=== PATIENT | female | born 1945 | race Caucasian/White ===

== ENCOUNTER 2019-07-04 07:26 | Inpatient (IN) | payer OTHER, BC ==
--- NOTE | 2019-07-04 07:57 | PDOC ---
History of Present Illness - General Chief Complaint: Injury Stated Complaint: FALL Time Seen by Provider: 07/04/19 07:40 History Source: Patient Exam Limitations: No Limitations - History of Present Illness Initial Comments: 07/04/19 07:58 Christi Montiel is a 74yF w PMHx HTN and cataracts presenting w R hip and ankle pain s/p fall. 630a today she fell down 2 stairs while carrying paper while looking up w subsequent R ankle swelling and pain in R ankle/hip. No LOC, head trauma, not on blood thinners. Could not ambulate after fall. Denies nausea/ vomiting, SOB, chest pain. Past History - Past Medical History Allergies/Adverse Reactions: Allergies Allergy/AdvReac Type Severity Reaction Status Date / Time No Known Allergies Allergy Verified 07/04/19 09:05 Review of Systems - Review of Systems Constitutional: No: Chills, Fever HEENTM: No: Eye Pain, Recent change in vision, Nose Pain, Throat Pain, Mouth Pain Respiratory: No: Cough, Shortness of Breath Cardiac (ROS): No: Chest Pain, Palpitations, Syncope ABD/GI: No: Abdominal Distended, Constipated, Diarrhea, Nausea, Vomiting : No: Burning, Dysuria, Discharge, Hematuria Musculoskeletal: Yes: Back Pain, Joint Pain (R ankle) Integumentary: Yes: Bruising (R ankle). No: Flushing Neurological: No: Headache, Seizure, Tingling Psychiatric: No: Anxiety, Depression, Stressors Endocrine: No: Excessive Sweating, Flushing, Intolerance to Cold, Intolerance to Heat Hematologic/Lymphatic: No: Anemia, Blood Clots *Physical Exam - Physical Exam General Appearance: Yes: Nourished, Appropriately Dressed, Mild Distress HEENT: positive: EOMI, MARILEE, Normal Voice, Hearing Grossly Normal. negative: Scleral Icterus (R), Scleral Icterus (L), Rhinorrhea, Sinus Tenderness Neck: positive: Supple. negative: Tender, Rigid Respiratory/Chest: positive: Lungs Clear, Normal Breath Sounds. negative: Chest Tender, Respiratory Distress, Crackles, Rales, Rhonchi, Stridor, Wheezing Cardiovascular: positive: Regular Rhythm, Regular Rate, S1, S2, Systolic Murmur. negative: Edema Vascular Pulses: Dorsalis-Pedis (R): 3+, Doralis-Pedis (L): 3+ Musculoskeletal: positive: Normal Inspection, Other (no stepoffs, R lumbar paraspinal and ischial spine mild tenderness) Extremity: positive: Other (+2 edema and bruising over medial malleolus R ankle. R leg lateral rotated. Normal sensation. ROM limited d/t pain.) Neurologic: positive: scroll assembler II-XII NML intact, Fully Oriented, Alert, Normal Mood/ Affect, Normal Response. negative: Motor Strength 5/5 (4/5 ) ED Treatment Course - LABORATORY CBC & Chemistry Diagram: 07/04/19 08:00 07/04/19 08:04 Medical Decision Making - Medical Decision Making 07/04/19 08:02 CBC CMP coags T&S EKG done R hip XR R ankle XR tylenol --- Christi Montiel is a 74yF w PMHx HTN and cataracts presenting w R hip and ankle pain s/p mechanical fall. R ankle XR shows trimalleolar fracture-dislocation of R ankle. R hip XR did not show fracture/dislocation. R leg is neurovascular intact. Pt is neuro intact, no head trauma. Has new systolic murmur on exam. Given tylenol Consulted [facility] for Dr Becerril, told to reduce, splint ankle and dc w ortho f /u. Pt consented to propofol sedation, ankle was reduced and placed in a splint/ cast. Pt could not ambulate w crutches. Ortho will not perform surgery for at least 5d to wait for ankle swelling to settle down. Admitted m/s Dr Farris for R ankle trimalleolar fracture-dislocation, systolic murmur Discharge - Discharge Information Problems reviewed: Yes Clinical Impression/Diagnosis: Systolic murmur Trimalleolar fracture of ankle, closed Qualifiers: Encounter type: initial encounter Laterality: right Qualified Code(s): S82.851A - Displaced trimalleolar fracture of right lower leg, initial encounter for closed fracture Condition: Stable - Follow up/Referral Referrals: Adithya Warren [Primary Care Provider] - Curtis Becerril MD [Staff Physician] - - Patient Discharge Instructions Patient Printed Discharge Instructions: How to Take Care of Your Cast, DI for Ankle Fracture, DI for Heart Murmur-Adult Additional Instructions: You were seen for hip and ankle pain after falling. Your x-rays show that you have a right ankle fracture. You also have a heart murmur. You were given medication for your pain and your ankle was reduced and placed in a cast. You decided to leave AMA Please follow up with the referred orthopedics Dr Becerril regarding your ankle. Follow up with your primary care doctor regarding your heart murmur. Do not bear weight on your right foot. Avoid getting your cast wet. You can take tylenol or ibuprofen if you continue to have pain. Come back to the ED if you have increasing foot pain, numbness, or fevers. - Post Discharge Activity
[2019-07-04] MEDS ORDERED: ACETAMINOPHEN 500 MG TABLET (FP) PO ONE (07:58)
[2019-07-04] MEDS ORDERED: morphine CARPU-JECT 4 MG/1 ML DISP.SYRIN IVPUSH ONE (08:05)
[2019-07-04] MEDS ORDERED: ACETAMINOPHEN 1000 MG/100 ML VIAL (NON FORMULARY) IVPB ONE (08:09)
--- NOTE | 2019-07-04 08:30 | PDOC ---
Attending Attestation - Resident Resident Name: Edi Costello - ED Attending Attestation I have performed the following: I have examined & evaluated the patient, The case was reviewed & discussed with the resident, I agree w/resident's findings & plan, Exceptions are as noted - HPI HPI: We will go with history of hypertension cataracts presents with mechanical fall. Patient was walking with a box down stairs fell down 2 stairs landing predominantly on her right ankle up to her right hip complaining of moderate pain persistent constant with swelling to her right ankle mild right hip denies any trauma loss of consciousness patient does not take any blood thinners Symptoms are moderate to severe persistent constant worse alleviated by rest ROS: A complete review of 10 out of 10 review of systems is taken and is negative apart from what is previously mentioned below and in the HPI. - Physicial Exam PE: Vitals: Triage Vital signs reviewed General Appearance: Moderate distress, well nourished well developed, Head: Atraumatic, Eyes: Pupils equal reactive round, extraocular movement intact Cardiac: Regular rate and rhythym, no murmurs, no rubs, no gallops, Lungs: Clear to auscultation bilateral, good air movement bilaterally, Abdomen: Soft, non distended, normal bowel sounds, non tender to palpation Extremities: Full range of motion to all extremities, ecchymosis swelling to the right ankle maximally tender to palpation over the medial malleolus no proximal fibular tubular tenderness to palpation Neurovascular intact distally Skin: Warm and dry, swollen lower extremity Neuro: AOX3; cranial Nerves 2-12 grossly intact, strength intact to all extremities, sensation intact to all extremities, Psych: Normal mood, normal affect - Medical Decision Making 07/04/19 15:19 X-ray demonstrates tri-malleolar fracture Case discussed with Dr. Bingham orthopedics. No indication for acute surgery if patient can be reduced Patient consented for moderate sedation last meal 4:30 AM will wait till late morning early afternoon for sedation Patient consented for sedation reduction timeout performed single agent propofol used see sedation procedure note See reduction procedure note Adequate reduction obtained, films reviewed by orthopedist adequate for outpatient follow-up Our memory care program resident has spoken at length with the patient myself and our memory care program resident recommended that the patient stay for admission I am concerned about her ability to ambulate at home given that she has home she will require crutches Patient is adamant she will not stay in the hospital she has cats at home hospital I have offered help from our care management team in caring for her pets Despite my best efforts patient will not stay for admission. She is free of intoxication has insight to her disease process she can return to the emergency department at any time She will sign out AMA. She will follow-up with orthopedics in 1 week She will return to the ED for any worsening symptoms Reevaluation: Patient Un-ambulate with crutches as she is completely unsteady when standing. She lives by herself she has multiple stairs and she cannot be safely discharged home she will require admission, ortho consultation and definitive placement vrs management Moderate Sedation - Pre-Procedure Assessment Joint Reduction Is this a Moderate (Conscious) sedation patient?: Yes Med/Surg Hx & PE performed: Yes Vital Signs: Vital Signs Temp Pulse Resp BP Pulse Ox 98.7 F 71 18 161/87 98 07/06/19 09:00 07/06/19 17:00 07/06/19 17:00 07/06/19 17:00 07/06/19 09:00 Does the patient have a history of Obstructive Sleep Apnea: No Prior complications with sedation/analgesia: No Mallampati Score: II ASA Physical Status: Class II Consent obtained: Written Items checked for time out procedure: All work stopped, Patient identified using 2 identifiers, Procedure to be performed verified & agreed, Allergies noted, Consent read, Site marked & verified (if indicated), ED physician/DIGITAL COURT REPORTER/PA/ Resident identified, Patient position verified, All active procedure participants present from the beginning Sedation agent: Propofol - Post Procedure Assessment Tolerated procedure well: Yes Was a reversal agent used?: No Patient evaluation: Awake, alert and oriented, Vital signs reviewed, Cardiopulmonary exam normal, Pain controlled Printed Discharge Instructions given: No (patient admitted) Procedure Note Procedure: Patient consented for reduction of trimalleolar fracture to right ankle. Timeout and consent performed prior to procedure. Performed under moderate sedation see procedure note Patient tolerated procedure well placed in a posterior and ulnar gutter splint status post reduction. Neurovascularly intact pre-and post procedure Confirmed by x-ray findings and x-rays reviewed with orthopedics. Patient tolerated procedure well.
[2019-07-04] MEDS ORDERED: PIPERACILLIN/TAZOB 4.5 GM 4.5 GM in DEXTROSE 5%-WATER 100 ML IVPB ONE (09:03)
[2019-07-04] MEDS ORDERED: VANCOMYCIN 1 GM in D5W (PRE-DOCKED) 1,000 MG/250 ML IVPB ONE (09:03)
[2019-07-04 09:04] LABS: BASO % 0.5 % (0-2.0); EOS % 2.9 % (0-4.5); HEMATOCRIT 42.1 % (32.4-45.2); HEMOGLOBIN 14.2 GM/dL (10.7-15.3); LYMPH % 12.8 % (8-40); MCH 29.7 pg (25.7-33.7); MCHC 33.8 g/dl (32.0-36.0); MEAN PLT VOLUME 9.3 fl (7.5-11.1); MONO % 7.9 % (3.8-10.2); NEUT % 75.9 % (42.8-82.8); PLATELET COUNT 220 K/MM3 (134-434); RBC 4.79 M/mm3 (3.60-5.2); RDW 13.7 % (11.6-15.6); WHITE BLOOD COUNT 6.9 K/mm3 (4.0-10.0)
[2019-07-04 09:13] LABS: BILIRUBIN,TOTAL 0.5 mg/dL (0.2-1); BLOOD UREA NITROGEN 15.1 mg/dL (7-18); CALCIUM 9.1 mg/dL (8.5-10.1); POTASSIUM 4.3 mmol/L (3.5-5.1); TOT PROT 7.2 g/dl (6.4-8.2)
[2019-07-04 09:16] LABS: INR 0.97 (0.83-1.09); PROTHROMBIN TIME (PATIENT) 11.4 SEC (9.7-13.0)
[2019-07-04] MEDS ORDERED: PROPOFOL 200 MG/20 ML VIAL IVPUSH ONE (13:04)
[2019-07-04] MEDS ORDERED: PROPOFOL 20 ML ONE (13:05)
[2019-07-04] MEDS ORDERED: ONDANSETRON 4 MG/2 ML VIAL IVPUSH ONE (13:06)
[2019-07-04] MEDS ORDERED: ONDANSETRON 4 MG/2 ML VIAL ONE (13:13)
--- NOTE | 2019-07-04 17:14 | PN ---
Teaching Attending Note Name of Resident: Shin Sen ATTENDING PHYSICIAN STATEMENT I saw and evaluated the patient. I reviewed the resident's note and discussed the case with the resident. I agree with the resident's findings and plan as documented. SUBJECTIVE: Mild RLE discomfort. No other complaints. OBJECTIVE: Afebrile, Hypertensive Last Vital Signs Temp Pulse Resp BP Pulse Ox 98.2 F 80 16 220/108 H 97 07/04/19 07:30 07/04/19 15:22 07/04/19 15:20 07/04/19 15:22 07/04/19 15:22 HEENT - Atraumatic, Normocephalic. MARILEE Heart - S1, S2, RRR Lungs - Clear to auscultation Abdomen - soft, non-tender. Bowel sounds normal. Extremities - RLE immobilized in cast. Neurovascularly intact. Neuro - AAO x 3. Tone/Power normal other extremities, RLE limited exam due to fracture. Laboratory Results - last 24 hr 07/04/19 07/04/19 07/04/19 08:00 08:00 08:00 WBC 6.9 RBC 4.79 Hgb 14.2 Hct 42.1 MCV 88.0 MCH 29.7 MCHC 33.8 RDW 13.7 Plt Count 220 MPV 9.3 Absolute Neuts (auto) 5.2 Neutrophils % 75.9 Lymphocytes % 12.8 Monocytes % 7.9 Eosinophils % 2.9 Basophils % 0.5 Nucleated RBC % 0 PT with INR 11.40 INR 0.97 Sodium Potassium Chloride Carbon Dioxide Anion Gap BUN Creatinine Est GFR (CKD-EPI)AfAm Est GFR (CKD-EPI)NonAf Random Glucose Calcium Total Bilirubin AST ALT Alkaline Phosphatase Total Protein Albumin Blood Type O POSITIVE Antibody Screen Negative 07/04/19 07/04/19 08:04 11:12 WBC RBC Hgb Hct MCV MCH MCHC RDW Plt Count MPV Absolute Neuts (auto) Neutrophils % Lymphocytes % Monocytes % Eosinophils % Basophils % Nucleated RBC % PT with INR INR Sodium 141 Potassium 4.3 Chloride 107 Carbon Dioxide 29 Anion Gap 5 L BUN 15.1 Creatinine 1.0 Est GFR (CKD-EPI)AfAm 64.27 Est GFR (CKD-EPI)NonAf 55.45 Random Glucose 125 H Calcium 9.1 Total Bilirubin 0.5 AST 20 ALT 28 Alkaline Phosphatase 76 Total Protein 7.2 Albumin 4.0 Blood Type O POSITIVE Antibody Screen Home Medications Medication Instructions Recorded Benazepril HCl 20 mg PO DAILY 07/04/19 Latanoprost 1 drop OU HS 07/04/19 Metoprolol Succinate [Toprol Xl] 50 mg PO DAILY 07/04/19 Simvastatin 20 mg PO DAILY 07/04/19 ASSESSMENT AND PLAN: 74 year old female with HTN, HLD, R Hip/ankle pains/p fall down 2 stairs found to have trimalleolar fracture with dislocation, underwent reduction and splinting in ED, unable to ambulate with crutches, and with uncontrolled HTN. Denies preceding CP/palpitations or HI/LOC. 1. Acute Fracture R Ankle/Trimalleolar fracture s/p Reduction and Splinting in ED Ortho consult. Analgesia with Oxycodone PRN PT 2. Uncontrolled HTN ECG requested. IV Labetalol Resume home meds (did not take today) - RENETTA-I, Metoprolol. Telemonitoring. 3. HLD - on Simvastatin. DVT Px - Heparin SQ once BP controlled.
[2019-07-04] MEDS ORDERED: LABETALOL HCL 5 MG/1 ML (100MG/20 ML VIAL) IVPUSH ONE ×2 (17:55→23:39)
[2019-07-04] MEDS ORDERED: PATIENT'S OWN MEDICATION (NON-FORMULARY) (Benazepril Hcl [Benazepril Hcl] 20 MG) PO SCH (18:00)
--- NOTE | 2019-07-04 18:00 | HP ---
CHIEF COMPLAINT: Right Leg Pain s/p Mechanical Fall PCP: HISTORY OF PRESENT ILLNESS: Pt is a 74 y/o D with a significant PMH of HTN who presented to [facility] due to a mechanical fall. Pt endorses she was walking down the steps in her house, injuring her right ankle and hip. Pt was found to have a trimalleolar fracture with dislocation on xray. Pt denies numbness/tingling in the right lower extremity. Denies chest pain, shortness of breath, nausea or vomiting. Denies being on nay blood thinners ER course was notable for: (1) Splinting and reduction of Fracture (2) BP 234 systolic (3) Recent Travel: denies PAST MEDICAL HISTORY: HTN PAST SURGICAL HISTORY: : Right shoulder bone spur removal". Cyst removal left breast. Social History: Smoking: Denies Alcohol: Social Drugs: Denies Allergies No Known Allergies Allergy (Verified 07/04/19 09:05) HOME MEDICATIONS: Home Medications Medication Instructions Recorded Benazepril HCl 20 mg PO DAILY 07/04/19 Latanoprost 1 drop OU HS 07/04/19 Metoprolol Succinate [Toprol Xl] 50 mg PO DAILY 07/04/19 Simvastatin 20 mg PO DAILY 07/04/19 REVIEW OF SYSTEMS CONSTITUTIONAL: Absent: fever, chills, diaphoresis, generalized weakness, malaise, loss of appetite, weight change HEENT: Absent: rhinorrhea, nasal congestion, throat pain, throat swelling, difficulty swallowing, mouth swelling, ear pain, eye pain, visual changes CARDIOVASCULAR: Absent: chest pain, syncope, palpitations, irregular heart rate, lightheadedness , peripheral edema RESPIRATORY: Absent: cough, shortness of breath, dyspnea with exertion, orthopnea, wheezing, stridor, hemoptysis GASTROINTESTINAL: Absent: abdominal pain, abdominal distension, nausea, vomiting, diarrhea, constipation, melena, hematochezia GENITOURINARY: Absent: dysuria, frequency, urgency, hesitancy, hematuria, flank pain, genital pain MUSCULOSKELETAL: Absent: myalgia, arthralgia, joint swelling, back pain, neck pain SKIN: Absent: rash, itching, pallor HEMATOLOGIC/IMMUNOLOGIC: Absent: easy bleeding, easy bruising, lymphadenopathy, frequent infections ENDOCRINE: Absent: unexplained weight gain, unexplained weight loss, heat intolerance, cold intolerance NEUROLOGIC: Absent: headache, focal weakness or paresthesias, dizziness, unsteady gait, seizure, mental status changes, bladder or bowel incontinence PSYCHIATRIC: Absent: anxiety, depression, suicidal or homicidal ideation, hallucinations. PHYSICAL EXAMINATION Vital Signs - 24 hr 07/04/19 07/04/19 07/04/19 07:30 13:31 13:42 Temperature 98.2 F Pulse Rate 83 Pulse Rate [ 86 73 Apical] Pulse Rate [ Right Upper Arm ] Respiratory 16 18 16 Rate Respiratory Rate [Right Upper Arm] Blood Pressure 135/74 Blood Pressure 234/145 H 218/156 H [Right Arm] Blood Pressure [Right Upper Arm] O2 Sat by Pulse 100 100 100 Oximetry (%) O2 Sat by Pulse Oximetry (%) [ Right Upper Arm ] 07/04/19 07/04/19 07/04/19 13:54 15:20 15:22 Temperature Pulse Rate Pulse Rate [ 82 80 Apical] Pulse Rate [ 86 Right Upper Arm ] Respiratory 16 Rate Respiratory 18 Rate [Right Upper Arm] Blood Pressure Blood Pressure 220/108 H 220/108 H [Right Arm] Blood Pressure 234/145 H [Right Upper Arm] O2 Sat by Pulse 100 97 Oximetry (%) O2 Sat by Pulse 100 Oximetry (%) [ Right Upper Arm ] GENERAL: NAD HEAD: Normal with no signs of trauma. EYES: EOMI Sclera Clear EARS, NOSE, THROAT: MMM NECK: Supple LUNGS: CTA B/l. HEART: Murmur LUSB Systolic. S1S2 ABDOMEN: Soft, nontender. MUSCULOSKELETAL: FROM LOWER EXTREMITIES: DP pulse 2+ RLE. Can move toes freely. SILT. ROM difficult to assess as pt in leg cast. NEUROLOGICAL: Cranial nerves II-XII intact. Normal speech. PSYCHIATRIC: Cooperative. Good eye contact. Appropriate mood and affect. SKIN: Warm, dry, normal turgor, no rashes or lesions noted, normal capillary refill. Laboratory Results - last 24 hr 07/04/19 07/04/19 07/04/19 08:00 08:00 08:00 WBC 6.9 RBC 4.79 Hgb 14.2 Hct 42.1 MCV 88.0 MCH 29.7 MCHC 33.8 RDW 13.7 Plt Count 220 MPV 9.3 Absolute Neuts (auto) 5.2 Neutrophils % 75.9 Lymphocytes % 12.8 Monocytes % 7.9 Eosinophils % 2.9 Basophils % 0.5 Nucleated RBC % 0 PT with INR 11.40 INR 0.97 Sodium Potassium Chloride Carbon Dioxide Anion Gap BUN Creatinine Est GFR (CKD-EPI)AfAm Est GFR (CKD-EPI)NonAf Random Glucose Calcium Total Bilirubin AST ALT Alkaline Phosphatase Total Protein Albumin Blood Type O POSITIVE Antibody Screen Negative 07/04/19 07/04/19 08:04 11:12 WBC RBC Hgb Hct MCV MCH MCHC RDW Plt Count MPV Absolute Neuts (auto) Neutrophils % Lymphocytes % Monocytes % Eosinophils % Basophils % Nucleated RBC % PT with INR INR Sodium 141 Potassium 4.3 Chloride 107 Carbon Dioxide 29 Anion Gap 5 L BUN 15.1 Creatinine 1.0 Est GFR (CKD-EPI)AfAm 64.27 Est GFR (CKD-EPI)NonAf 55.45 Random Glucose 125 H Calcium 9.1 Total Bilirubin 0.5 AST 20 ALT 28 Alkaline Phosphatase 76 Total Protein 7.2 Albumin 4.0 Blood Type O POSITIVE Antibody Screen ASSESSMENT/PLAN: Pt is a 74 y/o D with a significant PMH of HTN who presented to [facility] due to a mechanical fall. # Acute Fracture R Ankle/Trimalleolar fracture s/p Reduction and Splinting in ED Dr Becerril Consulted. Appreciate recs. Pain control wiith Oxycodone PRN Physical therapy # Uncontrolled HTN BP consistently 200s systolic while in Emergency Room ECG requested. IV Labetalol 10 mg Once Resume home meds (did not take today) - RENETTA-I, Metoprolol. #HLD - on Statin FEN No standing fluids Monitor Electrolytes Sodium Controlled Diet DVT Px - Heparin SQ once BP controlled. Visit type - Emergency Visit Emergency Visit: Yes ED Registration Date: 07/04/19 Care time: The patient presented to the Emergency Department on the above date and was hospitalized for further evaluation of their emergent condition. - New Patient This patient is new to me today: Yes Date on this admission: 07/04/19 - Critical Care Critical Care patient: No ATTENDING PHYSICIAN STATEMENT I saw and evaluated the patient. I reviewed the resident's note and discussed the case with the resident. I agree with the resident's findings and plan as documented. SUBJECTIVE: OBJECTIVE: ASSESSMENT AND PLAN:
[2019-07-04] MEDS ORDERED: LABETALOL HCL 5 MG/1 ML (200MG/40ML VIAL) IVPB ONE (18:17)
[2019-07-04] MEDS ORDERED: LISINOPRIL 5 MG TABLET (FP) ONE (18:17)
[2019-07-04] MEDS: LISINOPRIL 20 MG TABLET (FP) PO SCH (18:32)
[2019-07-04] MEDS: ATORVASTATIN CA 10 MG TABLET (FP) PO SCH (21:01)
[2019-07-04] MEDS ORDERED: ACETAMINOPHEN 1000 MG/100 ML VIAL (NON FORMULARY) IVPB PRN (22:01)
[2019-07-04] MEDS: oxyCODONE HCL 5 MG TABLET PO PRN (22:34)
[2019-07-05 01:36] VITALS: BMI 29.5
[2019-07-05] MEDS ORDERED: amLODIPine BESYLATE 5 MG TABLET (FP) PO ONE ×2 (02:42→16:25)
[2019-07-05] MEDS: oxyCODONE HCL 5 MG TABLET PO PRN ×3 (06:36→21:55)
[2019-07-05] MEDS: LATANOPROST 0.005% OPHTH SOLN 2.5ML BOTTLE OU SCH ×2 (06:37→22:45)
[2019-07-05 08:03] LABS: BASO % 0.3 % (0-2.0); EOS % 0.2 % (0-4.5); HEMATOCRIT 38.3 % (32.4-45.2); HEMOGLOBIN 12.7 GM/dL (10.7-15.3); LYMPH % 20.4 % (8-40); MCH 29.5 pg (25.7-33.7); MCHC 33.2 g/dl (32.0-36.0); MEAN CELL VOLUME 88.8 fl (80-96); MEAN PLT VOLUME 9.2 fl (7.5-11.1); MONO % 13.4 % (3.8-10.2); NEUT % 65.7 % (42.8-82.8); PLATELET COUNT 192 K/MM3 (134-434); RBC 4.31 M/mm3 (3.60-5.2); RDW 13.6 % (11.6-15.6); WHITE BLOOD COUNT 4.9 K/mm3 (4.0-10.0)
[2019-07-05 08:12] LABS: INR 1.05 (0.83-1.09); PROTHROMBIN TIME (PATIENT) 12.4 SEC (9.7-13.0)
[2019-07-05 08:15] LABS: ACTIVATED PTT 29.6 SECONDS (25.2-36.5)
[2019-07-05 08:31] LABS: ALBUMIN 3.4 g/dl (3.4-5.0); BILIRUBIN,TOTAL 0.8 mg/dL (0.2-1); BLOOD UREA NITROGEN 15.2 mg/dL (7-18); CALCIUM 8.7 mg/dL (8.5-10.1); CREATININE 1.2 mg/dL (0.55-1.3); MAGNESIUM 2.4 mg/dL (1.8-2.4); PHOSPHOROUS 3.9 mg/dL (2.5-4.9); POTASSIUM 4.2 mmol/L (3.5-5.1); TOT PROT 6.7 g/dl (6.4-8.2)
[2019-07-05] MEDS ORDERED: PT OWN MED DRAWER 7, Y5N ONE (09:21)
[2019-07-05] MEDS: LISINOPRIL 20 MG TABLET (FP) PO SCH (09:31)
[2019-07-05] MEDS ORDERED: FLU VACCINE QUAD 60 MCG/0.5 ML (MDV 19-20) IM ONE (10:00)
[2019-07-05] MEDS ORDERED: PATIENT'S OWN MEDICATION (NON-FORMULARY) (Simvastatin [Simvastatin] 20 MG) PO SCH (10:00)
--- NOTE | 2019-07-05 10:22 | EKG ---
Test Reason : Blood Pressure : / mmHG Vent. Rate : 066 BPM Atrial Rate : 066 BPM P-R Int : 150 ms QRS Dur : 078 ms QT Int : 430 ms P-R-T Axes : 029 005 005 degrees QTc Int : 450 ms NORMAL SINUS RHYTHM NORMAL ECG NO PREVIOUS ECGS AVAILABLE Confirmed by FANI SULTANA MD ([id number]) on 07/05/2019 10:22:22 AM Referred By: Confirmed By:FANI SULTANA MD
--- NOTE | 2019-07-05 11:42 | CON.ORTH ---
Consult Consult Specialty:: Orthopedics Reason for Consultation:: Right ankle fracture - History of Present Illness Chief Complaint: Right ankle pain History of Present Illness: This is a 74 yo F with PMHx of HTN who presented to ED with right hip and ankle pain s/p mechanical fall yesterday. Patient states she fell down her stairs at home and was unable to put pressure on her right leg afterward. She now is only complaining of right ankle pain. Found to have trimalleolar ankle fracture in ED yesterday that was reduced and splinted. States she feels comfortable in splint. Patient lives at home by herself. She denies any previous injury to this ankle. Denies any numbness, tingling to toes. - History Source History Provided By: Patient Limitations to Obtaining History: No Limitations - Alcohol/Substance Use Hx Alcohol Use: Yes - Smoking History Smoking history: Never smoked Home Medications - Allergies Allergies/Adverse Reactions: Allergies Allergy/AdvReac Type Severity Reaction Status Date / Time No Known Allergies Allergy Verified 07/04/19 09:05 - Home Medications Home Medications: Ambulatory Orders Benazepril HCl 20 mg PO DAILY 07/04/19 Latanoprost 1 drop OU HS 07/04/19 Metoprolol Succinate [Toprol Xl] 50 mg PO DAILY 07/04/19 Simvastatin 20 mg PO DAILY 07/04/19 Review of Systems - Review of Systems Musculoskeletal: reports: Joint Pain (right ankle pain and swellin) Physical Exam for Ortho Vital Signs: Vital Signs Temperature 98.9 F 07/05/19 09:27 Pulse Rate 74 07/05/19 09:27 Respiratory Rate 18 07/05/19 09:27 Blood Pressure 198/103 H 07/05/19 09:27 O2 Sat by Pulse Oximetry (%) 100 07/04/19 18:25 Constitutional: Yes: Well Nourished, No Distress Labs: CBC, BMP 07/05/19 07:35 07/05/19 07:35 INR, PTT INR 1.05 (0.83-1.09) 07/05/19 07:35 - Lower Extremity Ankle: Yes: Right (LE splint in place. Full painless ROM of right hip and knee. NVID.) Imaging - Results X-ray: Image Reviewed (Post-reduction XR of right ankle shows trimalleolar fracture with improved alignment compared to pre-reduction XR) Problem List - Problems (1) Trimalleolar fracture of ankle, closed Code(s): S82.853A - DISPLACED TRIMALLEOLAR FRACTURE OF UNSP LOWER LEG, INIT Qualifiers: Encounter type: initial encounter Laterality: right Qualified Code(s): S82.851A - Displaced trimalleolar fracture of right lower leg, initial encounter for closed fracture Assessment/Plan 74 yo F with PMHx of HTN who presented to ED with right ankle pain s/p mechanical fall yesterday found to have trimalleolar fracture and dislocation of right ankle, reduced and splinted in ED yesterday. -Post-reduction XR show improved alignment of right ankle -Patient comfortable in splint -Nonweight-bearing -Worked with PT today -F/u with Dr. Bingham this week to further discuss surgical options -Okay to discharge from orthopedic standpoint -Reconsult as needed
[2019-07-05] MEDS ORDERED: amLODIPine BESYLATE 5 MG TABLET (FP) PO SCH (12:45)
--- NOTE | 2019-07-05 14:55 | DS ---
Physical Exam: SUBJECTIVE: Mild RLE discomfort. No other complaints. Wants to go home - feels anxious in the hospital. No headache/nausea/vomiting BP up to 200 systolic and over 100 diastolic. OBJECTIVE: Afebrile, Hypertensive Last Vital Signs Temp Pulse Resp BP Pulse Ox 98.9 F 74 18 161/87 100 07/05/19 09:27 07/05/19 09:27 07/05/19 09:27 07/05/19 09:27 07/05/19 09:00 HEENT - Atraumatic, Normocephalic. MARILEE Heart - S1, S2, RRR Lungs - Clear to auscultation Abdomen - soft, non-tender. Bowel sounds normal. Extremities - RLE immobilized in splint. Neurovascularly intact. Neuro - AAO x 3. Tone/Power normal other extremities, RLE limited exam due to fracture. Laboratory Results - last 24 hr 07/05/19 07/05/19 07/05/19 07:35 07:35 07:35 WBC 4.9 RBC 4.31 Hgb 12.7 Hct 38.3 MCV 88.8 MCH 29.5 MCHC 33.2 RDW 13.6 Plt Count 192 MPV 9.2 Absolute Neuts (auto) 3.2 Neutrophils % 65.7 Lymphocytes % 20.4 D Monocytes % 13.4 H Eosinophils % 0.2 D Basophils % 0.3 Nucleated RBC % 0 PT with INR 12.40 INR 1.05 PTT (Actin FS) 29.6 Sodium 143 Potassium 4.2 Chloride 109 H Carbon Dioxide 28 Anion Gap 7 L BUN 15.2 Creatinine 1.2 Est GFR (CKD-EPI)AfAm 51.56 Est GFR (CKD-EPI)NonAf 44.48 Random Glucose 112 H Calcium 8.7 Phosphorus 3.9 Magnesium 2.4 Total Bilirubin 0.8 AST 18 ALT 25 Alkaline Phosphatase 66 Total Protein 6.7 Albumin 3.4 Discharge Medications Medication Instructions Recorded Benazepril HCl 20 mg PO DAILY 07/04/19 Latanoprost 1 drop OU HS 07/04/19 Metoprolol Succinate [Toprol Xl] 50 mg PO DAILY 07/04/19 Simvastatin 20 mg PO DAILY 07/04/19 Amlodipine Besylate [Norvasc -] 5 mg PO DAILY 30 Days #30 tablet 07/05/19 Date of Admission:07/04/19 Date of Discharge: 07/05/19 Minutes to complete discharge: 35 Discharge Summary Problems reviewed: Yes Reason For Visit: CLOSED TRIMALLEOLAR FRACTURE Current Active Problems Systolic murmur (Acute) Trimalleolar fracture of ankle, closed (Acute) Hospital Course: 74 year old female with HTN, HLD, R Hip/ankle pain s/p fall down 2 stairs found to have trimalleolar fracture with dislocation, underwent reduction and splinting in ED, unable to ambulate with crutches, and with uncontrolled HTN. Denies preceding CP/palpitations or HI/LOC. She was admitted due to her uncontrolled HTN and inability to ambulate independently with crutches. The following issues were addressed as follows during her hospitalization: 1. Acute Fracture R Ankle/Trimalleolar fracture s/p Reduction and Splinting in ED Ortho consulted - for out-patient follow up. 2. Uncontrolled HTN, pain likely a contributing factor. She endorses a history of uncontrolled HTN. ECG - NSR, no acute changes. Resumed on home meds with ongoing hypertension. BP finally responded to Metoprolol 100mg, Norvasc 10mg and Lisinopril 40mg. her regimen will be adjusted at the time of discharge and prescriptions sent. She admits to being prescribed Toprol XL 100mg but that she self halved the dose to 50mg without consulting her PCP. Importance of medication compliance was stressed. She was explained all risks of uncontrolled HTN including stroke, ICH, disability, . She was urged to follow with her PCP next week. 3. HLD - on Simvastatin. Condition: Improved - Instructions Diet, Activity, Other Instructions: You were admitted after a fall with ankle fracture, which was reduced and splinted in the ER. You were evaluated by Orthopedics and recommended to follow with Dr. Bingham as an out-patient for more definitive surgical options. You were given crutches and evaluated by PT. You declined nursing facility placement and insisted on going home despite being explained risks of doing so including fall and head injury. In addition, during your hospital stay, you were found to have uncontrolled hypertension, not at target with your current regimen of Benazepril and Toprol. Your Blood Pressure readings of greater than 200/100. The dangers of these high BP readings were explained to you along with the risks including stroke, intracerebral hemorrhage, disability, . The importance of adhering to your medication regimen was discussed and emphasized. You will be discharged on Norvasc 10mg daily, Metoprolol 100mg daily, and Benazepril 40mg daily. You are advised to follow with your PCP for BP monitoring and repeat chemistry labwork in 1-2 weeks due to increased dose of Benazepril. Referrals: Adithya Warren [Primary Care Provider] - Tio Bingham MD [Staff Physician] - 07/07/19 Disposition: HOME - Home Medications Comprehensive Discharge Medication List: Ambulatory Orders Benazepril HCl 20 mg PO DAILY 07/04/19 Latanoprost 1 drop OU HS 07/04/19 Metoprolol Succinate [Toprol Xl] 50 mg PO DAILY 07/04/19 Simvastatin 20 mg PO DAILY 07/04/19 Amlodipine Besylate [Norvasc -] 5 mg PO DAILY 30 Days #30 tablet 07/05/19 This patient is new to me today: No Emergency Visit: Yes ED Registration Date: 07/04/19 Care time: The patient presented to the Emergency Department on the above date and was hospitalized for further evaluation of their emergent condition. Critical Care patient: No - Discharge Referral Referred to [facility] No
[2019-07-05] MEDS ORDERED: LABETALOL HCL 5 MG/1 ML (100MG/20 ML VIAL) IVPUSH ONE (16:27)
[2019-07-05] MEDS ORDERED: metoPROLOL SUCCINATE 25 MG TAB.SR.24H (FP) PO ONE (17:01)
[2019-07-05] MEDS ORDERED: LISINOPRIL 20 MG TABLET (FP) PO ONE (17:02)
[2019-07-05] MEDS: ATORVASTATIN CA 10 MG TABLET (FP) PO SCH (21:56)
[2019-07-05] MEDS ORDERED: ACETAMINOPHEN 1000 MG/100 ML VIAL (NON FORMULARY) IVPB PRN (22:13)
[2019-07-05] MEDS ORDERED: oxyCODONE HCL 5 MG TABLET PO PRN (22:13)
[2019-07-06] MEDS ORDERED: amLODIPine BESYLATE 10 MG TABLET (FP) PO SCH ×2 (10:00)
[2019-07-06] MEDS ORDERED: LISINOPRIL 20 MG TABLET (FP) PO SCH (10:00)
[2019-07-06 10:41] VITALS: TEMP 98.7
--- NOTE | 2019-07-06 11:29 | PN ---
Teaching Attending Note Name of Resident: Shin Sen ATTENDING PHYSICIAN STATEMENT I saw and evaluated the patient. I reviewed the resident's note and discussed the case with the resident. I agree with the resident's findings and plan as documented. SUBJECTIVE: Mild RLE discomfort. No other complaints. Wants to go home - feels anxious in the hospital. Agitated, using foul language, worried about her cats. No headache/nausea/vomiting BP up to 200 systolic and over 100 diastolic. OBJECTIVE: Afebrile, Hypertensive, although had a reading 166/97 overnight after receiving anti-hypertensive regimen documented below). Last Vital Signs Temp Pulse Resp BP Pulse Ox 98.7 F 110 H 18 199/76 H 100 07/06/19 09:00 07/06/19 10:30 07/06/19 10:30 07/06/19 10:30 07/05/19 21:00 HEENT - Atraumatic, Normocephalic. MARILEE Heart - S1, S2, RRR Lungs - Clear to auscultation Abdomen - soft, non-tender. Bowel sounds normal. Extremities - RLE immobilized in splint. Neurovascularly intact. Neuro - AAO x 3. Tone/Power normal other extremities, RLE limited exam due to fracture. Current Medications Generic Name Dose Route Start Last Admin Trade Name Freq PRN Reason Stop Dose Admin Acetaminophen 1,000 mg 07/05/19 22:13 Ofirmev Injection - IVPB Q6H PRN PAIN LEVEL 1-5 Amlodipine Besylate 10 mg 07/06/19 10:00 07/06/19 09:26 Norvasc - PO 10 mg DAILY NEREIDA Administration Atorvastatin Calcium 10 mg 07/06/19 22:00 Lipitor - PO HS NEREIDA Latanoprost 1 drop 07/06/19 22:00 Xalatan 0.005% Eye Drops - OU HS NEREIDA Lisinopril 40 mg 07/06/19 10:00 07/06/19 09:27 Prinivil PO 40 mg DAILY NEREIDA Administration Metoprolol Succinate 75 mg 07/06/19 10:00 Toprol Xl - PO DAILY NEREIDA Oxycodone HCl 5 mg 07/05/19 22:13 07/06/19 03:32 Roxicodone - PO 5 mg Q6H PRN Administration PAIN LEVEL 6-10 ASSESSMENT/PLAN: 74 year old female with HTN, HLD, R Hip/ankle pain s/p fall down 2 stairs found to have trimalleolar fracture with dislocation, underwent reduction and splinting in ED, unable to ambulate with crutches, and with uncontrolled HTN. Denies preceding CP/palpitations or HI/LOC. She was admitted due to her uncontrolled HTN and inability to ambulate independently with crutches. 1. Acute Fracture R Ankle/Trimalleolar fracture s/p Reduction and Splinting in ED Ortho consulted - for out-patient follow up. Analgesia with Oxycodone PRN PT evaluated - some difficulty ambulating independently with crutches, improving. Further management as out-patient by Ortho 2. Uncontrolled HTN, pain likely a contributing factor. She endorses a history of uncontrolled HTN, unclear degree of medication compliance. ECG - NSR, no acute changes. Toprol XL increased to 75mg from 50mg (apparently supposed to be on 100mg but dropped it herself to 50mg), Lisinopril increased from 20mg to 40mg and Norvasc 10mg added. BMP in 2 weeks due to increased RENETTA-I bob. 3. HLD - on Simvastatin. Once BP better controlled and she demonstrates improved ambulation with crutches , she will be cleared for discharge with Ortho follow up.
--- NOTE | 2019-07-06 14:36 | PN ---
Physical Exam: SUBJECTIVE: Patient seen and examined at bedside. BP 210 systolic this morning. Pt anxious about not being home with her cats. OBJECTIVE: Vital Signs Period Temp Pulse Resp BP Sys/Mayes Pulse Ox Last 24 Hr 98.3 F-99.8 F 65-110 18-20 166-210/76-110 98-100 GENERAL: Mild distress HEAD: Atraumatic/normocephalic EYES: EOMI Sclera clear ENT: MMM NECK: Trachea midline, full range of motion, supple. LUNGS: CTAB HEART: RRR S1S2 ABDOMEN: Soft, NDNT EXTREMITIES: RLE in splint. DP 2+ warm to touch. SILT. NEUROLOGICAL: Cranial nerves II through XII grossly intact. Normal speech. PSYCH: Normal mood, normal affect. SKIN: Warm, dry. Active Medications Generic Name Dose Route Start Last Admin Trade Name Freq PRN Reason Stop Dose Admin Acetaminophen 1,000 mg 07/05/19 22:13 Ofirmev Injection - IVPB Q6H PRN PAIN LEVEL 1-5 Amlodipine Besylate 10 mg 07/06/19 10:00 07/06/19 09:26 Norvasc - PO 10 mg DAILY NEREIDA Administration Atorvastatin Calcium 10 mg 07/06/19 22:00 Lipitor - PO HS NEREIDA Latanoprost 1 drop 07/06/19 22:00 Xalatan 0.005% Eye Drops - OU HS NEREIDA Lisinopril 40 mg 07/06/19 10:00 07/06/19 09:27 Prinivil PO 40 mg DAILY NEREIDA Administration Metoprolol Succinate 75 mg 07/06/19 10:00 07/06/19 14:03 Toprol Xl - PO 75 mg DAILY NEREIDA Administration Oxycodone HCl 5 mg 07/05/19 22:13 07/06/19 03:32 Roxicodone - PO 5 mg Q6H PRN Administration PAIN LEVEL 6-10 ASSESSMENT/PLAN: Pt is a 74 y/o D with a significant PMH of HTN who presented to [facility] due to a mechanical fall. # Acute Fracture R Ankle/Trimalleolar fracture s/p Reduction and Splinting in ED Dr Becerril Consulted. Appreciate recs. Pain control wiith Oxycodone PRN Physical therapy # Uncontrolled HTN BP consistently 200s systolic while in Emergency Room ECG requested--> IV Labetalol 10 mg Once Increase Lisinopril to 40 daily (Benzapril non-formulary), Add Norvasc 10 mg, and Torpol xl 100 mg. #HLD - on Statin FEN No standing fluids Monitor Electrolytes Sodium Controlled Diet DVT Px - Heparin SQ once BP controlled. Dispo: DC home Visit type - Emergency Visit Emergency Visit: Yes ED Registration Date: 07/04/19 Care time: The patient presented to the Emergency Department on the above date and was hospitalized for further evaluation of their emergent condition. - New Patient This patient is new to me today: No - Critical Care Critical Care patient: No - Discharge Referral Referred to [facility] Med [facility] No ATTENDING PHYSICIAN STATEMENT I saw and evaluated the patient. I reviewed the resident's note and discussed the case with the resident. I agree with the resident's findings and plan as documented. SUBJECTIVE: OBJECTIVE: ASSESSMENT AND PLAN:
[2019-07-06] MEDS ORDERED: metoPROLOL SUCCINATE 25 MG TAB.SR.24H (FP) PO ONE (16:01)
[2019-07-06 17:01] VITALS: BP 161/87; PULSE 71
[2019-07-06] MEDS ORDERED: ATORVASTATIN CA 10 MG TABLET (FP) PO SCH (22:00)
[2019-07-06] MEDS ORDERED: LATANOPROST 0.005% OPHTH SOLN 2.5ML BOTTLE OU SCH (22:00)
== END 2019-07-06 18:17 | disposition home health service (06) | DRG 563 ==
LOC: JER 07:26 → JERBED 16:25 → J8W 18:35 → J4W 07-05 17:28
PROC: 0QSGXZZ Reposition Right Tibia, External Approach (ICD-10-PCS; principal; 2019-07-04)
DX: S82.851A Displaced trimalleolar fracture of right lower leg, initial encounter for closed fracture (principal); I10 Essential (primary) hypertension; H26.9 Unspecified cataract; E78.5 Hyperlipidemia, unspecified; W19.XXXA Unspecified fall, initial encounter; Y93.9 Activity, unspecified; Y92.89 Other specified places as the place of occurrence of the external cause; Y99.9 Unspecified external cause status
CPT/HCPCS: 36415; 71045-TC-FY; 73523-TC-FY; 73610-TC-RT-FY; 73630-TC-RT-FY; 80053; 83735; 84100; 85025; 85610; 85730; 86850; 86900; 86901; 93005; 93010; 97116-GP; 97162-GP; 99283-25; G0008; J0131; Q2036

== ENCOUNTER 2019-07-14 10:37 | Inpatient (IN) | payer OTHER, BC ==
[2019-07-14 10:56] VITALS: BMI 28.3
[2019-07-14] MEDS ORDERED: ACETAMINOPHEN INJECTION 100 ML IVPB ONE (11:19)
[2019-07-14 11:39] LABS: BASO % 0.3 % (0-2.0); EOS % 0.8 % (0-4.5); HEMATOCRIT 41.2 % (32.4-45.2); HEMOGLOBIN 13.6 GM/dl (10.7-15.3); LYMPH % 15.8 % (8-40); MCH 29.6 pg (25.7-33.7); MEAN CELL VOLUME 89.6 fl (80-96); MEAN PLT VOLUME 9.4 fl (7.5-11.1); MONO % 8.6 % (3.8-10.2); NEUT % 74.5 % (42.8-82.8); PLATELET COUNT 290 K/MM3 (134-434); RBC 4.59 M/mm3 (3.60-5.2); WHITE BLOOD COUNT 5.7 K/mm3 (4.0-10.8)
[2019-07-14 11:47] LABS: ALBUMIN 3.7 g/dl (3.4-5.0); BILIRUBIN,TOTAL 1.2 mg/dl (0.2-1); CALCIUM 9.1 mg/dl (8.5-10); POTASSIUM 3.5 mmol/L (3.5-5.1)
[2019-07-14 11:49] LABS: ACTIVATED PTT 27.8 SECONDS (25.2-36.5)
--- NOTE | 2019-07-14 11:52 | PDOC ---
History of Present Illness - General Chief Complaint: Injury Stated Complaint: RT ANKLE FRACTURE Time Seen by Provider: 07/14/19 10:42 History Source: Patient, Primary Care Provider (Dr. Becerril) Exam Limitations: No Limitations - History of Present Illness Initial Comments: 07/14/19 11:47 74-year-old female with history of hypertension presents from orthopedics office with complications of right ankle trimalleolar fracture sustained on . Patient fell down stairs on 07/04, presented to [facility] and had reduction/splinting followed by admission, left for personal reasons, now presents to Dr. Becerril's office for follow-up and was noted to have swelling with fracture blisters requiring operative intervention. Patient denies any sensory deficit, has maintained splint with reported elevation since hospitalization, denies any fevers or chills. Has noted serosanguineous oozing from the bandages over the last 2 days, no other complaints. Past History - Past Medical History Allergies/Adverse Reactions: Allergies Allergy/AdvReac Type Severity Reaction Status Date / Time eggplant Allergy Unknown Verified 07/14/19 10:41 Home Medications: Ambulatory Orders Latanoprost 1 drop OU HS 07/04/19 Simvastatin 20 mg PO DAILY 07/04/19 Benazepril HCl 40 mg PO DAILY #30 tablet 07/06/19 Metoprolol Succinate [Toprol Xl] 100 mg PO DAILY #30 tab.er.24h 07/06/19 Amlodipine Besylate [Norvasc -] 5 mg PO DAILY 07/14/19 COPD: No HTN: Yes - Psycho Social/Smoking Cessation Hx Smoking History: Never smoked Have you smoked in the past 12 months: No Information on smoking cessation initiated: No Hx Alcohol Use: Yes Drug/Substance Use Hx: No Review of Systems - Review of Systems Constitutional: No: Chills, Fever, Night Sweats Respiratory: No: Cough, Shortness of Breath Cardiac (ROS): Yes: Edema. No: Chest Pain, Palpitations ABD/GI: No: Nausea, Vomiting Musculoskeletal: Yes: See HPI Integumentary: No: Rash All Other Systems: Reviewed and Negative *Physical Exam - Vital Signs Last Vital Signs Temp Pulse Resp BP Pulse Ox 98.3 F 80 20 177/97 H 100 07/14/19 10:37 07/14/19 10:37 07/14/19 10:37 07/14/19 10:37 07/14/19 10:37 - Physical Exam 07/14/19 11:49 Blood pressure slightly elevated, improved compared to hospitalization. Afebrile. GENERAL: The patient is awake, alert, and fully oriented, in no acute distress. HEAD: Normal with no signs of trauma. EYES: PERRL, EOMI, sclera anicteric, conjunctiva clear with no pallor. ENT: oropharynx clear without exudates. Moist mucous membranes. NECK: Normal range of motion, supple without lymphadenopathy, JVD, or masses. LUNGS: Breath sounds equal, clear to auscultation bilaterally. No wheeze/ crackles. HEART: Regular rate and rhythm, normal S1 and S2 with 2 out of 6 right upper sternal border systolic ejection murmur. ABDOMEN: Soft/nontender/nondistended. BS wnl. No guarding or rebound. No palpable masses. No hepatosplenomegaly. EXTREMITIES: Normal except for right lower extremity: Splint in place with bandage, fracture blisters with serous sanguinous oozing, there is 3+ pitting edema to the knee on the right side, 2+ distal pulses with brisk cap refill otherwise. No superimposed cellulitis or abscess. NEUROLOGICAL: Cranial nerves II through XII grossly intact. Normal speech, presents in wheelchair given nonweightbearing of right lower extremity. PSYCH: Normal mood, normal affect. SKIN: As noted above. Heart Score/ECG Review #1 ECG reviewed & interpreted by me at: 11:09 General ECG Interpretation: Sinus Rhythm, Normal Rate (69), Normal Intervals ( qtc 456), No acute ischemic changes ED Treatment Course - LABORATORY CBC & Chemistry Diagram: 07/14/19 11:10 07/14/19 11:10 - RADIOLOGY Radiology Studies Ordered: Category Date Time Status DUPLEX VASCUL US-1 LEG [US] Stat Ultrasound 07/14/19 10:59 Ordered Medical Decision Making - Medical Decision Making 07/14/19 11:51 74-year-old female with recent right trimalleolar ankle fracture presents from Dr. Becerril of orthopedics with complications of fracture blister and worsening swelling, requiring operative intervention for trimalleolar ankle fracture. Neurovascularly intact, but with right greater than left leg swelling, rule out DVT. No cardiopulmonary complaints, baseline slightly elevated blood pressure without symptoms or signs of endorgan injury. Preoperative labs sent Dr. Becerirl scheduled for the OR at 1 PM EKG without ischemic changes Check right lower extremity Doppler to rule out DVT Admission 07/14/19 12:22 labs wnl. pt unchanged and well appearing, comfortable. received tylenol IV for discomfort. Doppler pending, Jone aware and awaiting OR. Accepted for inpt med/surg by Dr. Mcghee, signout given to FABIAN Sabillon. Discharge - Discharge Information Problems reviewed: Yes Clinical Impression/Diagnosis: Uncontrolled hypertension Trimalleolar fracture of ankle, closed Qualifiers: Encounter type: subsequent encounter Laterality: right Fracture healing: with malunion Qualified Code(s): S82.851P - Displaced trimalleolar fracture of right lower leg, subsequent encounter for closed fracture with malunion - Admission Yes - Follow up/Referral - Patient Discharge Instructions - Post Discharge Activity
[2019-07-14 11:53] LABS: INR 1.24 (0.82-1.09); PROTHROMBIN TIME (PATIENT) 13.8 SEC (10.2-13.0)
[2019-07-14] MEDS ORDERED: SUCCINYLCHOLINE CHLORIDE 200 MG/10 ML SYRINGE ONE (12:53)
[2019-07-14] MEDS ORDERED: LIDOCAINE HCL/PF 2% SDV 5ML VIAL ONE (12:53)
[2019-07-14] MEDS ORDERED: MIDAZOLAM HCL 2 MG/2 ML SINGLE DOSE VIAL ONE (12:53)
[2019-07-14] MEDS ORDERED: PROPOFOL 20 ML ONE (12:53)
[2019-07-14] MEDS ORDERED: ROCURONIUM BROMIDE 50 MG/5 ML SYRINGE ONE (12:54)
--- NOTE | 2019-07-14 13:32 | HP ---
CHIEF COMPLAINT: Ankle fracture PCP: Dr. Adithya Warren Ortho: Dr. Curtis Becerril HISTORY OF PRESENT ILLNESS: 74-year-old female with history of hypertension presents from orthopedics office with complications of right ankle trimalleolar fracture sustained on . Patient fell down stairs on 07/04, presented to [facility] and had reduction/splinting followed by admission, left for personal reasons, now presents to Dr. Becerril's office for follow-up and was noted to have swelling with fracture blisters requiring operative intervention. Patient denies any sensory deficit, has maintained splint with reported elevation since hospitalization, denies any fevers or chills. Has noted serosanguineous oozing from the bandages over the last 2 days, no other complaints. ER course was notable for: (1) US negative for DVT (2) BP 177/97 Recent Travel: No PAST MEDICAL HISTORY: Hypertension PAST SURGICAL HISTORY: Bone spur removal right shoulder Left breast cyst removal Social History: Smoking: denies Alcohol: social Drugs: denies Allergies eggplant Allergy (Unknown, Verified 07/14/19 10:41) HOME MEDICATIONS: Home Medications Medication Instructions Recorded Latanoprost 1 drop OU HS 07/04/19 Simvastatin 20 mg PO DAILY 07/04/19 Benazepril HCl 40 mg PO DAILY #30 tablet 07/06/19 Metoprolol Succinate [Toprol Xl] 100 mg PO DAILY #30 tab.er.24h 07/06/19 Amlodipine Besylate [Norvasc -] 5 mg PO DAILY 07/14/19 REVIEW OF SYSTEMS CONSTITUTIONAL: Absent: fever, chills, diaphoresis, generalized weakness, malaise, loss of appetite, weight change HEENT: Absent: rhinorrhea, nasal congestion, throat pain, throat swelling, difficulty swallowing, mouth swelling, ear pain, eye pain, visual changes CARDIOVASCULAR: Absent: chest pain, syncope, palpitations, irregular heart rate, lightheadedness , peripheral edema RESPIRATORY: Absent: cough, shortness of breath, dyspnea with exertion, orthopnea, wheezing, stridor, hemoptysis GASTROINTESTINAL: Absent: abdominal pain, abdominal distension, nausea, vomiting, diarrhea, constipation, melena, hematochezia GENITOURINARY: Absent: dysuria, frequency, urgency, hesitancy, hematuria, flank pain, genital pain MUSCULOSKELETAL: Absent: myalgia, arthralgia, joint swelling, back pain, neck pain SKIN: Absent: rash, itching, pallor HEMATOLOGIC/IMMUNOLOGIC: Absent: easy bleeding, easy bruising, lymphadenopathy, frequent infections ENDOCRINE: Absent: unexplained weight gain, unexplained weight loss, heat intolerance, cold intolerance NEUROLOGIC: Absent: headache, focal weakness or paresthesias, dizziness, unsteady gait, seizure, mental status changes, bladder or bowel incontinence PSYCHIATRIC: Absent: anxiety, depression, suicidal or homicidal ideation, hallucinations. PHYSICAL EXAMINATION Vital Signs - 24 hr 07/14/19 10:37 Temperature 98.3 F Pulse Rate 80 Respiratory 20 Rate Blood Pressure 177/97 H O2 Sat by Pulse 100 Oximetry (%) GENERAL: Awake, alert, and fully oriented, in no acute distress. HEAD: Normal with no signs of trauma. EYES: Pupils equal, round and reactive to light, extraocular movements intact, sclera anicteric, conjunctiva clear. LUNGS: Breath sounds equal, clear to auscultation bilaterally. HEART: Regular rate and rhythm, normal S1 and S2 without murmur, rub or gallop. ABDOMEN: Soft, nontender, not distended, UPPER EXTREMITIES: 2+ pulses, warm, well-perfused. No cyanosis. No clubbing. No peripheral edema. RLE: surgical dressing c/d/i; external hardware; able to flex/extend toes, sensory intact, warm, well-perfused NEUROLOGICAL: Cranial nerves II-XII intact. Normal speech. Laboratory Results - last 24 hr 07/14/19 07/14/19 07/14/19 11:10 11:10 11:10 WBC 5.7 RBC 4.59 Hgb 13.6 Hct 41.2 MCV 89.6 MCH 29.6 MCHC 33.0 RDW 13.0 Plt Count 290 MPV 9.4 Absolute Neuts (auto) 4.2 Neutrophils % 74.5 Lymphocytes % 15.8 Monocytes % 8.6 Eosinophils % 0.8 Basophils % 0.3 PT with INR 13.8 H INR 1.24 H PTT (Actin FS) 27.8 Sodium 140 Potassium 3.5 Chloride 107 Carbon Dioxide 24 Anion Gap 9 BUN 26.0 H Creatinine 1.0 Est GFR (CKD-EPI)AfAm 64.27 Est GFR (CKD-EPI)NonAf 55.45 Random Glucose 123 H Calcium 9.1 Total Bilirubin 1.2 H AST 18 ALT 16 Alkaline Phosphatase 67 Total Protein 7.0 Albumin 3.7 ASSESSMENT/PLAN: 74 year-old female with a PMH significant for HTN admitted for surgery to repair a right ankle trimalleolar fracture sustained on 07/04. Right ankle trimalleolar fracture s/p closed reduction and external fixation --POD #0 --perioperative antibiotics per surgery --Tylenol, oxycodone PRN for pain --protonix --bowel regimen --incentive spirometry Hypertension --BP stable --continue ToprolXL FEN Fluids: PO intake adequate Electrolytes: replete as indicated Nutrition: regular diet DVT prophylaxis: OOB, ambulation, SCD left leg; start chemical prophylaxis tomorrow if no bleeding; check h/h Physical therapy Dispo: continues to require inpatient care. Full code. Visit type - Emergency Visit Emergency Visit: Yes ED Registration Date: 07/14/19 Care time: The patient presented to the Emergency Department on the above date and was hospitalized for further evaluation of their emergent condition. - New Patient This patient is new to me today: Yes Date on this admission: 07/14/19 - Critical Care Critical Care patient: No
[2019-07-14] MEDS ORDERED: BUPIVACAINE HCL/PF 0.5% (5MG/ML) 10 ML VIAL ONE (13:52)
[2019-07-14] MEDS ORDERED: LIDOCAINE 1%/EPI 1:100000 (20 ML MULTI DOSE VIAL) ONE (13:52)
[2019-07-14] MEDS ORDERED: BUPIVACAINE HCL/PF 0.5% (5MG/ML) 10 ML VIAL IJ ONE ×2 (14:07)
[2019-07-14] MEDS ORDERED: PROMETHAZINE HCL 25 MG/1 ML VIAL IVPUSH PRN (15:01)
[2019-07-14] MEDS ORDERED: ONDANSETRON 4 MG/2 ML VIAL IVPUSH PRN (15:01)
[2019-07-14] MEDS ORDERED: oxyCODONE HCL 5 MG TABLET PO PRN ×2 (15:01→19:24)
[2019-07-14] MEDS ORDERED: MEPERIDINE HCL 50 MG/ML VIAL ONE (15:06)
[2019-07-14] MEDS ORDERED: MEPERIDINE HCL 25 MG/ML VIAL IVPUSH ONE (15:07)
--- NOTE | 2019-07-14 15:52 | OP ---
Operative Note - Note: Operative Date: 07/14/19 Operation: right ankle closed reduction and external fixation Implants: maikol jama 2 system, 2x tibial pins and 1x calcaneal pin Post-Operative Diagnosis: Same as Pre-op Director Of Global Sales: Marvin Warren Anesthesia: General
[2019-07-14] MEDS: CEFAZOLIN 1 GM/D5W 1 GM/50 ML BAG IVPB SCH (18:04)
[2019-07-14] MEDS ORDERED: ACETAMINOPHEN 325 MG TABLET (FP) PO PRN (19:24)
[2019-07-14] MEDS ORDERED: LATANOPROST 0.005% OPHTH SOLN 2.5ML BOTTLE OU SCH (22:00)
[2019-07-14] MEDS: DOCUSATE SODIUM 100 MG CAPSULE (FP) PO SCH (22:17)
[2019-07-14] MEDS: CALCIUM 500MG/VIT-D 200 UNITS COMBO TABLET (FP) PO SCH (22:17)
[2019-07-14] MEDS: LATANOPROST 0.005% OPHTH SOLN 2.5ML BOTTLE OU SCH (23:18)
[2019-07-15] MEDS: CEFAZOLIN 1 GM/D5W 1 GM/50 ML BAG IVPB SCH ×2 (02:01→11:16)
[2019-07-15] MEDS: DOCUSATE SODIUM 100 MG CAPSULE (FP) PO SCH ×3 (05:58→21:28)
[2019-07-15 08:40] LABS: BASO % 0.2 % (0-2.0); EOS % 0.1 % (0-4.5); HEMATOCRIT 34.5 % (32.4-45.2); HEMOGLOBIN 11.6 GM/dl (10.7-15.3); LYMPH % 15.9 % (8-40); MCHC 33.5 g/dl (32.0-36.0); MEAN CELL VOLUME 89.6 fl (80-96); MEAN PLT VOLUME 9.9 fl (7.5-11.1); MONO % 8.8 % (3.8-10.2); PLATELET COUNT 236 K/MM3 (134-434); RBC 3.85 M/mm3 (3.60-5.2); RDW 12.4 % (11.6-15.6); WHITE BLOOD COUNT 6.2 K/mm3 (4.0-10.8)
[2019-07-15 08:51] LABS: ALBUMIN 3.1 g/dl (3.4-5.0); BILIRUBIN,TOTAL 0.7 mg/dl (0.2-1); CALCIUM 8.4 mg/dl (8.5-10); MAGNESIUM 1.8 mg/dL (1.8-2.4); POTASSIUM 3.7 mmol/L (3.5-5.1); TOT PROT 6.1 g/dl (6.4-8.2)
--- NOTE | 2019-07-15 09:40 | PN ---
Progress Note, Physician Chief Complaint: Complaint of right lower extremity pain. History of Present Illness: 74-year-old female with history of hypertension presents from orthopedics office with complications of right ankle trimalleolar fracture sustained on . Patient fell down stairs on 07/04, presented to [facility] and had reduction/splinting followed by admission, left for personal reasons, now presents to Dr. Becerril's office for follow-up and was noted to have swelling with fracture blisters requiring operative intervention. - Current Medication List Current Medications: Active Medications Acetaminophen (Tylenol -) 650 mg PO Q6H PRN PRN Reason: PAIN LEVEL 1-5 Amlodipine Besylate (Norvasc -) 5 mg PO DAILY [facility] Atorvastatin Calcium (Lipitor -) 10 mg PO HS [facility] Calcium Carbonate/Cholecalciferol (Os-Abner 500+D -) 1 tab PO BID [facility] Last Admin: 07/14/19 22:17 Dose: Not Given Docusate Sodium (Colace -) 100 mg PO TID [facility] Last Admin: 07/15/19 05:58 Dose: Not Given Enoxaparin Sodium (Lovenox -) 40 mg SQ DAILY [facility] Cefazolin Sodium (Ancef 1 Gm Premixed Ivpb -) 1 gm in 50 mls @ 100 mls/hr IVPB Q8H [facility] Stop: 07/15/19 17:59 Last Admin: 07/15/19 02:01 Dose: 100 mls/hr Latanoprost (Xalatan 0.005% Eye Drops -) 1 drop OU HS [facility] Last Admin: 07/14/19 23:18 Dose: Not Given Lisinopril (Prinivil) 40 mg PO DAILY [facility] Metoprolol Succinate (Toprol Xl -) 100 mg PO DAILY@1800 [facility] Last Admin: 07/14/19 18:05 Dose: Not Given Oxycodone HCl (Roxicodone -) 5 mg PO Q6H PRN PRN Reason: PAIN LEVEL 6-10 Pantoprazole Sodium (Protonix -) 40 mg PO DAILY [facility] - Objective Vital Signs: Vital Signs Temperature 98.5 F 07/15/19 04:00 Pulse Rate 64 07/15/19 04:00 Respiratory Rate 18 07/15/19 04:00 Blood Pressure 157/70 07/15/19 04:00 O2 Sat by Pulse Oximetry (%) 96 07/15/19 08:47 Elderly F not in distress HEENT: Mm moist, no anemia, PERRLA EOMI NECK: No JVd No Bruit CHEST: CTA B/L CVS; SS2 R no m/g/r ABD: No distention, non tender BS + EXT: Rt LE in external fixator immobilized SKILLED NURSING FACILITIES PROFESSIONAL: AOX3 non focal Labs: CBC, BMP 07/15/19 07:35 07/15/19 07:35 INR, PTT INR 1.24 (0.82-1.09) H 07/14/19 11:10 Problem List - Problems (1) Trimalleolar fracture of ankle, closed Assessment/Plan: He status post surgery, no weightbearing as per orthopedic recommendations, continue pain medication possible DC to subacute rehab on . Problems reviewed: Yes Code(s): S82.853A - DISPLACED TRIMALLEOLAR FRACTURE OF UNSP LOWER LEG, INIT Qualifiers: Encounter type: subsequent encounter Laterality: right Fracture healing: with malunion Qualified Code(s): S82.851P - Displaced trimalleolar fracture of right lower leg, subsequent encounter for closed fracture with malunion (2) HTN (hypertension) Assessment/Plan: Cont current meds Problems reviewed: Yes Code(s): I10 - ESSENTIAL (PRIMARY) HYPERTENSION (3) Hypercholesterolemia Assessment/Plan: Cont statin Problems reviewed: Yes Code(s): E78.00 - PURE HYPERCHOLESTEROLEMIA, UNSPECIFIED Assessment/Plan S/P Rt ankle surgey POD2 possible Dc on to [facility]
[2019-07-15] MEDS ORDERED: PATIENT'S OWN MEDICATION (NON-FORMULARY) (Simvastatin [Simvastatin] 20 MG) PO SCH (10:00)
[2019-07-15] MEDS ORDERED: amLODIPine BESYLATE 5 MG TABLET (FP) PO SCH (10:00)
[2019-07-15] MEDS ORDERED: PATIENT'S OWN MEDICATION (NON-FORMULARY) (Benazepril Hcl [Benazepril Hcl] 40 MG) PO SCH (10:00)
[2019-07-15] MEDS ORDERED: LISINOPRIL 20 MG TABLET (FP) PO SCH (10:00)
--- NOTE | 2019-07-15 10:17 | EKG ---
Test Reason : Blood Pressure : / mmHG Vent. Rate : 069 BPM Atrial Rate : 069 BPM P-R Int : 136 ms QRS Dur : 088 ms QT Int : 426 ms P-R-T Axes : 055 030 012 degrees QTc Int : 456 ms NORMAL SINUS RHYTHM ABNORMAL ECG WHEN COMPARED WITH ECG OF 04-JUL-2019 08:22, NO SIGNIFICANT CHANGE WAS FOUND Confirmed by Carlos Montalvo MD ([id number]) on 07/15/2019 10:16:50 AM Referred By: NIKO MCCOLLUM Confirmed By:Carlos Montalvo MD
[2019-07-15] MEDS: CALCIUM 500MG/VIT-D 200 UNITS COMBO TABLET (FP) PO SCH ×2 (11:17→21:29)
[2019-07-15] MEDS: PANTOPRAZOLE 40 MG TABLET (FP) PO SCH (11:17)
[2019-07-15] MEDS: LISINOPRIL 20 MG TABLET (FP) PO SCH (11:17)
[2019-07-15] MEDS: ENOXAPARIN NA (PORCINE) 40 MG/0.4 ML DISP.SYRIN SQ SCH (11:18)
[2019-07-15] MEDS: amLODIPine BESYLATE 5 MG TABLET (FP) PO SCH (11:19)
--- NOTE | 2019-07-15 14:12 | CON.ORTH ---
Consult - Past Medical History ...: No - Alcohol/Substance Use Hx Alcohol Use: Yes - Smoking History Smoking history: Never smoked Have you smoked in the past 12 months: No Home Medications - Allergies Allergies/Adverse Reactions: Allergies Allergy/AdvReac Type Severity Reaction Status Date / Time eggplant Allergy Unknown Verified 07/14/19 10:41 - Home Medications Home Medications: Ambulatory Orders Latanoprost 1 drop OU HS 07/04/19 Simvastatin 20 mg PO DAILY 07/04/19 Benazepril HCl 40 mg PO DAILY #30 tablet 07/06/19 Metoprolol Succinate [Toprol Xl] 100 mg PO DAILY #30 tab.er.24h 07/06/19 Amlodipine Besylate [Norvasc -] 5 mg PO DAILY 07/14/19 Physical Exam for Ortho Vital Signs: Vital Signs Temperature 98.5 F 07/15/19 04:00 Pulse Rate 64 07/15/19 04:00 Respiratory Rate 18 07/15/19 04:00 Blood Pressure 157/70 07/15/19 04:00 O2 Sat by Pulse Oximetry (%) 96 07/15/19 08:47 Labs: CBC, BMP 07/15/19 07:35 07/15/19 07:35 INR, PTT INR 1.24 (0.82-1.09) H 07/14/19 11:10 Assessment/Plan Right ankle fracture/dislocation. Pt seen in office earlier today. Pt found to have acute blood blisters and malreduction. Pt was sent to ER and admitted. Pt was indicated for external fixation followed by defnitive ORIF. Will have in external fixator for 1-2 weeks then convert to ORIF.
--- NOTE | 2019-07-15 14:15 | PN ---
Progress Note (short form) - Note Progress Note: POD 1 R ankle ex-fix pt comf no complaints RLE proximal pin sites with small serosanguinous drainage distally dry calves soft NT ehl fhl intact sens int to LT 2+ DP A: R ankle fracture/dislocation fracture blisters s/p exfix P: elevate limb strict NWB finish out post op abx will plan for dc to SNF after dressing change in AM will decide when to go for definitive ORIF following dressing change based on skin condition
[2019-07-15] MEDS ORDERED: PT OWN MED DRAWER 7, Y5N ONE (21:08)
[2019-07-15] MEDS: ATORVASTATIN CA 10 MG TABLET (FP) PO SCH (21:29)
[2019-07-15] MEDS: LATANOPROST 0.005% OPHTH SOLN 2.5ML BOTTLE OU SCH (21:32)
[2019-07-15] MEDS ORDERED: ATORVASTATIN CA 10 MG TABLET (FP) PO SCH (22:00)
[2019-07-16] MEDS: DOCUSATE SODIUM 100 MG CAPSULE (FP) PO SCH ×3 (06:56→21:13)
[2019-07-16] MEDS: amLODIPine BESYLATE 5 MG TABLET (FP) PO SCH (10:15)
[2019-07-16] MEDS: PANTOPRAZOLE 40 MG TABLET (FP) PO SCH (10:15)
[2019-07-16] MEDS: ENOXAPARIN NA (PORCINE) 40 MG/0.4 ML DISP.SYRIN SQ SCH (10:15)
[2019-07-16] MEDS: LISINOPRIL 20 MG TABLET (FP) PO SCH (10:15)
[2019-07-16 10:27] LABS: BASO % 0.3 % (0-2.0); EOS % 0.8 % (0-4.5); HEMOGLOBIN 12.1 GM/dL (10.7-15.3); LYMPH % 22.4 % (8-40); MCH 29.3 pg (25.7-33.7); MCHC 33.5 g/dl (32.0-36.0); MEAN CELL VOLUME 87.7 fl (80-96); MEAN PLT VOLUME 9.9 fl (7.5-11.1); NEUT % 65.5 % (42.8-82.8); PLATELET COUNT 245 K/MM3 (134-434); RBC 4.11 M/mm3 (3.60-5.2); RDW 13.5 % (11.6-15.6); WHITE BLOOD COUNT 6.4 K/mm3 (4.0-10.0)
[2019-07-16] MEDS: CALCIUM 500MG/VIT-D 200 UNITS COMBO TABLET (FP) PO SCH ×2 (10:45→21:13)
[2019-07-16 11:41] LABS: BLOOD UREA NITROGEN 17.8 mg/dL (7-18); CALCIUM 8.6 mg/dL (8.5-10.1); CREATININE 0.9 mg/dL (0.55-1.3); POTASSIUM 3.9 mmol/L (3.5-5.1)
--- NOTE | 2019-07-16 12:42 | PN ---
Progress Note, Physician Chief Complaint: Patient feels comfortable History of Present Illness: . - Current Medication List Current Medications: Active Medications Acetaminophen (Tylenol -) 650 mg PO Q6H PRN PRN Reason: PAIN LEVEL 1-5 Amlodipine Besylate (Norvasc -) 5 mg PO DAILY [facility] Last Admin: 07/16/19 10:15 Dose: 5 mg Atorvastatin Calcium (Lipitor -) 10 mg PO HS [facility] Last Admin: 07/15/19 21:29 Dose: 10 mg Calcium Carbonate/Cholecalciferol (Os-Abner 500+D -) 1 tab PO BID [facility] Last Admin: 07/16/19 10:45 Dose: Not Given Docusate Sodium (Colace -) 100 mg PO TID [facility] Last Admin: 07/16/19 06:56 Dose: Not Given Enoxaparin Sodium (Lovenox -) 40 mg SQ DAILY [facility] Last Admin: 07/16/19 10:15 Dose: 40 mg Latanoprost (Xalatan 0.005% Eye Drops -) 1 drop OU HS [facility] Last Admin: 07/15/19 21:32 Dose: Not Given Lisinopril (Prinivil) 40 mg PO DAILY [facility] Last Admin: 07/16/19 10:15 Dose: 40 mg Metoprolol Succinate (Toprol Xl -) 100 mg PO DAILY@1800 [facility] Last Admin: 07/15/19 18:26 Dose: 100 mg Oxycodone HCl (Roxicodone -) 5 mg PO Q6H PRN PRN Reason: PAIN LEVEL 6-10 Last Admin: 07/15/19 11:19 Dose: 5 mg Pantoprazole Sodium (Protonix -) 40 mg PO DAILY [facility] Last Admin: 07/16/19 10:15 Dose: 40 mg - Objective Vital Signs: Vital Signs Temperature 98.2 F 07/16/19 10:00 Pulse Rate 70 07/16/19 10:00 Respiratory Rate 20 07/16/19 10:00 Blood Pressure 162/80 07/16/19 10:00 O2 Sat by Pulse Oximetry (%) 98 07/16/19 06:00 Elderly F not in distress HEENT: Mm moist, no anemia, PERRLA EOMI NECK: No JVd No Bruit CHEST: CTA B/L CVS; SS2 R no m/g/r ABD: No distention, non tender BS + EXT: Rt LE in external fixator immobilized [employer]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 Code(s): S82.853A - DISPLACED TRIMALLEOLAR FRACTURE OF UNSP LOWER LEG, INIT Qualifiers: Encounter type: subsequent encounter Laterality: right Fracture healing: with malunion Qualified Code(s): S82.851P - Displaced trimalleolar fracture of right lower leg, subsequent encounter for closed fracture with malunion (2) HTN (hypertension) Assessment/Plan: Cont current meds Code(s): I10 - ESSENTIAL (PRIMARY) HYPERTENSION (3) Hypercholesterolemia Assessment/Plan: Cont statin Code(s): E78.00 - PURE HYPERCHOLESTEROLEMIA, UNSPECIFIED
[2019-07-16] MEDS ORDERED: PT OWN MED DRAWER 7, Y5N ONE ×2 (21:12→22:53)
[2019-07-16] MEDS: ATORVASTATIN CA 10 MG TABLET (FP) PO SCH (21:13)
[2019-07-16] MEDS: LATANOPROST 0.005% OPHTH SOLN 2.5ML BOTTLE OU SCH (21:15)
[2019-07-17] MEDS: DOCUSATE SODIUM 100 MG CAPSULE (FP) PO SCH ×2 (06:18→14:18)
[2019-07-17 07:59] LABS: BASO % 0.5 % (0-2.0); EOS % 1.8 % (0-4.5); HEMATOCRIT 37.4 % (32.4-45.2); HEMOGLOBIN 12.2 GM/dl (10.7-15.3); LYMPH % 23.8 % (8-40); MCH 29.1 pg (25.7-33.7); MCHC 32.6 g/dl (32.0-36.0); MEAN CELL VOLUME 89.2 fl (80-96); MEAN PLT VOLUME 9.6 fl (7.5-11.1); MONO % 9.7 % (3.8-10.2); NEUT % 64.2 % (42.8-82.8); PLATELET COUNT 266 K/MM3 (134-434); RBC 4.19 M/mm3 (3.60-5.2); RDW 12.6 % (11.6-15.6); WHITE BLOOD COUNT 5.6 K/mm3 (4.0-10.8)
[2019-07-17 08:05] LABS: CALCIUM 8.8 mg/dl (8.5-10); CREATININE 0.9 mg/dl (0.55-1.3); POTASSIUM 4.5 mmol/L (3.5-5.1)
[2019-07-17] MEDS: PANTOPRAZOLE 40 MG TABLET (FP) PO SCH (09:23)
[2019-07-17] MEDS: ENOXAPARIN NA (PORCINE) 40 MG/0.4 ML DISP.SYRIN SQ SCH (09:23)
[2019-07-17] MEDS: LISINOPRIL 20 MG TABLET (FP) PO SCH (09:23)
[2019-07-17] MEDS: amLODIPine BESYLATE 5 MG TABLET (FP) PO SCH (09:23)
[2019-07-17] MEDS: CALCIUM 500MG/VIT-D 200 UNITS COMBO TABLET (FP) PO SCH (09:23)
--- NOTE | 2019-07-17 09:45 | DS ---
"Physical Examination Vital Signs: Vital Signs Temperature 98.3 F 07/17/19 06:00 Pulse Rate 64 07/17/19 06:00 Respiratory Rate 18 07/17/19 06:00 Blood Pressure 177/80 H 07/17/19 06:00 O2 Sat by Pulse Oximetry (%) 99 07/17/19 06:00 Findings/Remarks: 74 year-old female with a PMH significant for HTN admitted for surgery to repair a right ankle trimalleolar fracture sustained on 07/04. - Problems (1) Trimalleolar fracture of ankle, closed Assessment/Plan: He status post surgery, no weightbearing as per orthopedic recommendations, continue pain medication possible DC to subacute rehab on . Code(s): S82.853A - DISPLACED TRIMALLEOLAR FRACTURE OF UNSP LOWER LEG, INIT Qualifiers: Encounter type: subsequent encounter Laterality: right Fracture healing: with malunion Qualified Code(s): S82.851P - Displaced trimalleolar fracture of right lower leg, subsequent encounter for closed fracture with malunion (2) HTN (hypertension) Assessment/Plan: Cont current meds Code(s): I10 - ESSENTIAL (PRIMARY) HYPERTENSION (3) Hypercholesterolemia Assessment/Plan: Cont statin Code(s): E78.00 - PURE HYPERCHOLESTEROLEMIA, UNSPECIFIED [employer] Search Terms: armando yao, 1945Search Date: 07/17/2019 02:47:53 PM The Drug Utilization Report below displays all of the controlled substance prescriptions, if any, that your patient has filled in the last twelve months. The information displayed on this report is compiled from pharmacy submissions to the Department, and accurately reflects the information as submitted by the pharmacies. This report was requested by: Jason Carter | Reference #: [id number] There are no results for the search terms that you entered. Labs: CBC, BMP 07/17/19 07:30 07/17/19 07:30 Discharge Summary Problems reviewed: Yes Reason For Visit: RT ANKLE FRACTURE Current Active Problems HTN (hypertension) (Acute) Hypercholesterolemia (Acute) Trimalleolar fracture of ankle, closed (Acute) Uncontrolled hypertension (Acute) Condition: Good - Instructions Diet, Activity, Other Instructions: Curtis Becerril [facility] External Fixation Instructions 1. Continue strict nonweight-bearing on right leg. 2. Keep your dressing clean and dry. Do dressing changes every 3 days with use of xeroform, cast padding/web roll and ulices bandage. Continue use of posterior splint. 3. Keeping the leg elevated may help control inflammation. Do this by placing a pillow under the lower leg. Using ice packs may also help. 30 minutes on, 30 minutes off. 4. Please call the office to make an appointment to proceed with surgery in 1 week. 5. Feel free to call the office if there are any questions or concerns. Disposition: ALF FACILITY - Home Medications Comprehensive Discharge Medication List: Ambulatory Orders Latanoprost 1 drop OU HS 07/04/19 Simvastatin 20 mg PO DAILY 07/04/19 Benazepril HCl 40 mg PO DAILY #30 tablet 07/06/19 Metoprolol Succinate [Toprol Xl] 100 mg PO DAILY #30 tab.er.24h 07/06/19 Amlodipine Besylate [Norvasc -] 5 mg PO DAILY 07/14/19 This patient is new to me today: Yes Date on this admission: 07/17/19 Emergency Visit: Yes ED Registration Date: 07/14/19 Care time: The patient presented to the Emergency Department on the above date and was hospitalized for further evaluation of their emergent condition. Critical Care patient: No - Discharge Referral Referred to [facility] No"
--- NOTE | 2019-07-17 14:09 | PN ---
Progress Note (short form) - Note Progress Note: 74 yo F POD #3 s/p right ankle ex-fix. Patient lying comfortably in bed. No complaints or overnight events. Last Vital Signs Temp Pulse Resp BP Pulse Ox 97.8 F 73 18 163/74 100 07/17/19 10:00 07/17/19 10:00 07/17/19 10:00 07/17/19 10:00 07/17/19 10:00 PE: RLE No drainage throughout Healing wounds Calves soft NT NVID A: POD #3 s/p right ankle ex-fix P: Wounds appear to be healing appropriately Dressing changed Continue elevating operative leg Strict NWB Okay to discharge to rehab Plan for ORIF in 1 week
[2019-07-17 14:45] VITALS: BP 176/75; PULSE 76; TEMP 98.4
--- NOTE | 2019-07-18 19:00 | OP ---
DATE OF OPERATION: 07/14/2019 PREOPERATIVE DIAGNOSIS: Right displaced bimalleolar ankle fracture with skin blistering. POSTOPERATIVE DIAGNOSIS: Right displaced bimalleolar ankle fracture with skin blistering. PROCEDURE: Right ankle external fixation. SURGEON: Curtis Becerril MD ANESTHESIA: General. POSTOPERATIVE CONDITION: Stable. COMPLICATIONS: None. IMPLANTS: Pierre Shah 2 system external fixator. INDICATIONS: This is a pleasant 74-year-old female who had been attempting to have multiple closed reductions of right ankle fracture dislocation. She continued to be in a subluxed position and also had extensive skin blistering. Given that she was not a candidate for ORIF due to the skin blistering, it was recommended to perform an external fixation in order to allow the skin to heal for more definitive fixation. I reviewed surgical risks in detail including bleeding, infection, neurovascular injury, need for further surgery, postoperative pain and stiffness, nonunion, malunion, hardware failure, or cutout. We discussed the external fixator would be a staged procedure, and an ORIF would be performed afterwards in order to provide better, more precise alignment. I reviewed alternative continued splinting, which does not allow for proper skin care and did not allow for adequate reduction. I reviewed medical risks such as heart attack, stroke, DVT, PE, and . We discussed the use of perioperative antibiotic and DVT prophylaxis. I addressed all of the patient's questions. She voiced understanding and elected to proceed. DESCRIPTION OF PROCEDURE: Patient was brought to the operating room where general anesthetic was administered. The right lower extremity was then prepped and draped in the usual sterile fashion. A preoperative dose of antibiotics was given, and the usual time-out procedure was performed. At this point, in the proximal 1/3 of the tibial shaft, 2 pin sites were marked out. They were injected subcutaneously with Marcaine and lidocaine with epinephrine. Two small stab incisions were then made, and blunt spreading was carried down to the tibial cortex. Two Schanz screws were now inserted under fluoroscopic guidance in 2 planes. The Schanz screw placement was satisfactory. Attention was then turned toward the calcaneus. On the lateral view, the center of the calcaneal tuberosity was identified. A small incision was made medially. Blunt spreading was carried down to the cortex. The calcaneal pin was then inserted over the calcaneus and exiting the contralateral side. A frame was then assembled here, delta style. The ankle was then reduced, and the external fixator was tightened. While the reduction was not anatomic, the talus was under the tibia, and the medial malleolus was nearly anatomically reduced. The lateral malleolus remained with moderate displacement. This was deemed temporarily satisfactory. The pin sites were then sutured with 4-0 nylon about the pins. Sterile dressings were placed. A posterior splint was placed to maintain dorsiflexion. The patient was then extubated and transferred to recovery room in stable condition. Yue [id number]
== END 2019-07-17 15:39 | DRG 494 ==
LOC: FER 10:37 → FM/S 16:05
PROVIDERS: ADMIT Orthopaedic Surgery Sports Medicine; ATTEND Orthopaedic Surgery Sports Medicine
PROC: 0QSJ04Z Reposition Right Fibula with Internal Fixation Device, Open Approach (ICD-10-PCS; 2019-07-14)
PROC: 2W3QX3Z Immobilization of Right Lower Leg using Brace (ICD-10-PCS; principal; 2019-07-14 13:00)
DX: S82.851P Displaced trimalleolar fracture of right lower leg, subsequent encounter for closed fracture with malunion (principal); W17.89XD Other fall from one level to another, subsequent encounter; I10 Essential (primary) hypertension; E78.00 Pure hypercholesterolemia, unspecified
CPT/HCPCS: 36415; 73610-TC-RT-FY; 76000-TC-FY; 80048; 80053; 83735; 85025; 85610; 85730; 86850; 86900; 86901; 93005; 93971-TC; 94760; 97116-GP; 97162-GP; 99282-25; J2175

== ENCOUNTER 2019-07-25 05:55 | Day surgery (SDC) | payer OTHER, BC ==
[2019-07-25 06:51] VITALS: BMI 28.7
[2019-07-25] MEDS ORDERED: BUPIVACAINE HCL/PF 0.5% (5 MG/ML) 30 ML VIAL IJ ONE (07:15)
[2019-07-25] MEDS ORDERED: MIDAZOLAM HCL 2 MG/2 ML SINGLE DOSE VIAL ONE ×2 (07:15→07:28)
[2019-07-25] MEDS ORDERED: PROPOFOL 20 ML ONE ×3 (08:46→10:49)
[2019-07-25] MEDS ORDERED: ceFAZolin SODIUM 1 GM VIAL ONE (09:02)
[2019-07-25] MEDS ORDERED: ONDANSETRON 4 MG/2 ML VIAL IVPUSH PRN (11:42)
[2019-07-25] MEDS ORDERED: oxyCODONE HCL 5 MG TABLET PO PRN ×2 (11:42)
[2019-07-25] MEDS ORDERED: LACTATED RINGERS SOLUTION 1,000 ML IV SCH (11:45)
--- NOTE | 2019-07-25 12:04 | OP ---
Operative Note - Note: Operative Date: 07/25/19 Pre-Operative Diagnosis: right bimalleolar ankle fracture Operation: right ankle removal of external fixator, open reduction, internal fixation of lateral malleolus, medial malleolus and syndesmosis Implants: arthrex distal fibular plate 3.5mm and 2.7mm screws. arthrex 4.0 cannulated screws x2. arthrex tightrope x1 Post-Operative Diagnosis: Same as Pre-op Surgeon: Curtis Becerril Anesthesiologist/MANAGER SOCIAL: Carlos Almaraz Anesthesia: Spinal, Fractional Estimated Blood Loss (mls): 20
[2019-07-25] MEDS ORDERED: ONDANSETRON 4 MG/2 ML VIAL ONE (12:07)
[2019-07-25] MEDS ORDERED: amLODIPine BESYLATE 5 MG TABLET (FP) PO ONE (12:15)
[2019-07-25] MEDS ORDERED: hydrALAZINE HCL 20 MG/ML VIAL ONE (12:19)
[2019-07-25] MEDS ORDERED: PROMETHAZINE HCL 25 MG/1 ML VIAL ONE (12:28)
[2019-07-25] MEDS ORDERED: PROMETHAZINE HCL 25 MG/1 ML VIAL IVPUSH ONE (12:39)
[2019-07-25] MEDS ORDERED: hydrALAZINE HCL 20 MG/ML VIAL IVPUSH ONE (12:40)
[2019-07-25 13:32] VITALS: TEMP 98.3
[2019-07-25] MEDS ORDERED: ACETAMINOPHEN 325 MG TABLET (FP) ONE (14:03)
[2019-07-25] MEDS ORDERED: ACETAMINOPHEN 325 MG TABLET (FP) PO ONE ×2 (14:10→14:30)
[2019-07-25] MEDS ORDERED: oxyCODONE HCL 5 MG TABLET PO ONE (14:30)
[2019-07-25] MEDS ORDERED: oxyCODONE HCL 5 MG TABLET ONE (14:39)
[2019-07-25 15:08] VITALS: BP 155/66; PULSE 75
--- NOTE | 2019-07-27 21:15 | OP ---
DATE OF OPERATION: 07/25/2019 PREOPERATIVE DIAGNOSIS: Right bilateral ankle fracture. POSTOPERATIVE DIAGNOSIS: Right bilateral ankle fracture. PROCEDURE: Right ankle removal of external fixator; open reduction and internal fixation of lateral malleolus, medial malleolus, syndesmosis. IMPLANTS: Arthrex distal fibular plate with 3.5-mm nonlocking and 2.7-mm locking screws, Arthrex 4.0 cannulated screws x2, and Arthrex TightRope x1. SURGEON: Curtis Becerril MD BLOOD LOSS: 20. POSTOPERATIVE CONDITION: Stable. COMPLICATIONS: None. INDICATIONS: This is a pleasant 74-year-old female who suffered an ankle fracture/dislocation. She had been managed initially with splinting but developed blood blistering, was then treated with external fixation to allow her skin to heal. After the skin had improved over the course of a week, the patient was indicated for ORIF. Prior to surgery, the risks, benefits, and alternatives were reviewed in detail. Alternatives would be continued external fixator splinting with malunion and potential for significant postoperative arthrosis and loss of ambulatory ability. We discussed the option of ORIF, which was recommended. This would allow the bones to be put back in more anatomic alignment. Surgeries carries risks, including bleeding, infection, neurovascular injury, need for further surgery, postoperative pain and stiffness, nonunion, malunion, hardware failure or cutout. We discussed medical risks, such as heart attack, stroke, DVT, PE, and . I addressed the use of perioperative antibiotic and DVT prophylaxis. I addressed all the patient's questions and concerns. She voiced understanding and elected to proceed. PROCEDURE: The patient was brought to the operating room after administration of regional block in the preoperative holding area. She was then given spinal anesthetic. The right lower extremity was then prepped and draped in the usual sterile fashion. A preoperative dose of antibiotics was given and the usual timeout procedure was performed. The wound was then exsanguinated, the tourniquet was inflated to 250 mmHg. Incision was now planned over the distal fibula. This was then carried down through skin to subcutaneous tissue. Blunt spreading was used to expose the fascia, which was then split in line with the limb. The fracture site was now exposed. There was a great deal of comminution and there was essentially no lateral wall to the distal fragment. It was entirely comminuted and non-viable bone. This left a shell of the medial portion of the lateral malleolus containing the articular surface as viable bone, and this itself was comminuted to a small degree. Given the very limited amount of bone available to affix here, after debridement, attention was then turned medially. A curvilinear incision was planned out over the medial malleolus. This was then carried down through skin and subcutaneous tissue. Blunt spreading was used to expose the fascia, which was then split, exposing the saphenous vein and nerve. These were mobilized anteriorly to allow exposure to the fracture site. The fracture site here was debrided of any soft callus. A fracture reduction clamp was then placed across the fracture, bringing it into anatomic alignment. Two K wires from the 4.0 cannulated screws were then inserted in parallel fashion. Through the medial malleolar fragment. K wire placement was verified fluoroscopically. These were then overdrilled and two 4.0 cannulated screws were then inserted over these, securing the medial malleolus into place. Having secured the medial side, the lateral side was now in a more proper alignment. A fracture reduction clamp was now applied across the fibula and used to place it in as best an anatomic position as possible. Given the high-degree of comminution, no lag screw was possible. A neutralization plate was chosen, which functioned somewhat as a bridge plate in this situation. The plate was then affixed proximally utilizing 3.5-mm cortical screws. Distally, the 2.7-mm locking screws were used. After fixing the distal fragment in satisfactory alignment, which was confirmed fluoroscopically and visually, an external rotation stress test was performed. There was widening of the medial clear space consistent with syndesmotic injury. A TightRope was then drilled across the fibula and across the tibia parallel to the mortise and aiming slightly anterior. The entire device was then placed and toggled and tightened. External rotation stress was now repeated and no medial widening was seen. Given the large void present in the distal fibula, it was decided to perform a calcium phosphate cementing. The Arthrex calcium phosphate cement was mixed, and then a toothpaste-like consistency, it was injected into the area between the plate and the fibula to provide both structural stability and the template for bone growth. The entire construct was now examined both visually and fluoroscopically. Both fracture reduction and hardware placement were satisfactory. The wound was copiously irrigated. The fascia was closed with 0 Vicryl. The subcutaneous tissue was closed with 4-0 and 2-0 Vicryl. The skin was closed using 4-0 nylon. Sterile dressings were placed. Tourniquet was let down after 2 hours. The patient placed into a well-padded short leg cast, which was then bivalved. She was transferred to recovery room in stable condition. Yeu BOYKIN/[id number]
== END 2019-07-25 15:05 ==
LOC: FASU 05:55
PROVIDERS: ATTEND Orthopaedic Surgery Sports Medicine
PROC: 0QSG04Z Reposition Right Tibia with Internal Fixation Device, Open Approach (ICD-10-PCS; 2019-07-25)
PROC: 0SSF0ZZ Reposition Right Ankle Joint, Open Approach (ICD-10-PCS; 2019-07-25)
PROC: 0SPFX5Z Removal of External Fixation Device from Right Ankle Joint, External Approach (ICD-10-PCS; 2019-07-25)
PROC: 0QSJ04Z Reposition Right Fibula with Internal Fixation Device, Open Approach (ICD-10-PCS; principal; 2019-07-25 08:00)
DX: S82.841A Displaced bimalleolar fracture of right lower leg, initial encounter for closed fracture (principal); S93.431A Sprain of tibiofibular ligament of right ankle, initial encounter; X58.XXXA Exposure to other specified factors, initial encounter; Y93.9 Activity, unspecified; Y92.9 Unspecified place or not applicable
CPT/HCPCS: 20999; 27814; 27829; C1713; 73610-TC-RT-FY; 94760